=== PATIENT | female | born 1955 | race Caucasian/White ===

== ENCOUNTER → 2017-10-23 12:31 | Outpatient (CLI) | payer OTHER, SELFPAY ==
--- NOTE | 2017-10-23 12:46 | HPBI_ITS ---
MAMMOGRAPHY - BILATERAL SCREENING REASON FOR EXAM: Female, 61 years old. Routine annual screening examination. PERTINENT HISTORY: Non-contributory. TECHNIQUE: Digital bilateral breast valentino (3D mammographic acquisition) in the CC and MLO projections. 2-D mediolateral oblique (MLO) and craniocaudad (CC) views of both breasts were obtained. CAD: Full Field Digital Mammography with Computer Added Detection was performed. COMPARISON: Comparison is made with prior study dated April 18, 2016 and April 06, 2015. FINDINGS: Breast Composition: The breasts are almost entirely fatty. There are no dominant masses or suspicious calcifications. No other significant abnormalities are identified. There has been no significant change since the prior study. HPBI/SCREENING MAMM (CAD), BILAT IMPRESSION: Stable bilateral screening mammogram. Yearly follow-up mammogram recommended. (A) ASSESSMENT CATEGORY: BIRADS Category 1: Negative. A letter regarding these results will be sent to the patient by the facility within 30 days. Approximately 10% of breast cancers are not detected by mammography. A normal mammogram should not delay biopsy of a clinically suspicious abnormality. [id number] Electronically Signed: Jaydon Conklin MD at 15:05 EST Tel [phone], Service support ,
== END ==
PROVIDERS: Family Provider Family Medicine; PCP Family Medicine
DX: Z12.31 Encounter for screening mammogram for malignant neoplasm of breast (principal)
CPT/HCPCS: 77063; 77067

== ENCOUNTER → 2017-11-02 16:00 | Outpatient (CLI) | payer OTHER, SELFPAY | PROVIDERS: Family Provider Family Medicine; PCP Family Medicine; Visit Provider Otolaryngology Otolaryngology/Facial Plastic Surgery | DX: J32.9 Chronic sinusitis, unspecified (principal); J40 Bronchitis, not specified as acute or chronic | CPT/HCPCS: 87070; 87077; 87186; 87205 ==

== ENCOUNTER 2018-06-18 06:36 | Day surgery (SDC) | payer OTHER, SELFPAY ==
--- NOTE | 2018-06-17 | IMM_PTH ---
PATIENT: LACHO GORMAN LOC: EN U#:[id number] AGE/SX: 62/F ROOM: RE06/18/[address]: Dr. Ben Thomas MD : 1955 BED: DIS: 06/18/2018 SPEC #: [id number] RECD: 06/19/18 12:38 STATUS: ELIA REQ #: [id number] SEUN: 06/17/18 00:[address]: Ben Thomas DEPT: IMMUNOHISTOCHEMISTRY RECD BY: Cristin Blake ENTERED: 06/19/18 12:38 SP TYPE: IMMUNO OTHR DR: Dr. Harrison Phillips MD Tissues: B - Stomach, NOS Procedures: H Pylori (initial) PHYSICIAN & INSTITUTION [place] [id number] SPECIMEN INFORMATION: Tissue Source: B - Antral biopsy Clinical Info: Abdominal pain Specimen Number: [id number] CPT code: 89243 METHODOLOGY: Deparaffinized sections of prefer/formalin-fixed tissue or PAP/DQ stained slides are incubated with monoclonal/polyclonal antibodies/oligonucleotide probes. Localization is made via biotin free immunoperoxidase method. Appropriate controls are performed and reacted as expected. Results on target cell population are indicated in the following table: RESULTS: ANTIBODY / CLONE RESULT Block B H Pylori (polyclonal) negative These tests were developed and their performance characteristics determined by [facility]. They may not have been cleared or approved by the U.S. Food and Drug Administration. The FDA has determined that such clearance or approval is not necessary. INTERPRETATION: B. Antral biopsy: Negative for Helicobacter pylori organisms. SJ:lizzy 06/20/18
--- NOTE | 2018-06-17 | COLBX_PTH ---
PATIENT: LACHO GORMAN LOC: EN U#:[id number] AGE/SX: 62/F ROOM: RE06/18/[address]: Dr. Ben Thomas MD : 1955 BED: DIS: 06/18/2018 SPEC #: [id number] RECD: 06/18/18 13:52 STATUS: ELIA RERoger #: [id number] SEUN: 06/17/18 00:[address]: Ben Thomas DEPT: SURGICAL PATHOLOGY RECD BY: Sb Hernandez ENTERED: 06/18/18 13:53 SP TYPE: COLON BX OTHR DR: Dr. Harrison Phillips MD Tissues: A - Duodenum, NOS B - Gastric mucous membrane C - Esophageal mucous membrane D - Esophageal mucous membrane E - COLON BIOPSY Procedures: Surgery Specimen Level IV HEADER OPERATION: Colonoscopy, EGD PRE-OP DIAGNOSIS: Abdominal pain TISSUE SUBMITTED: A - Duodenal biopsy, B - Antral biopsy, C - Distal esophageal biopsy, D - Mid esophageal biopsy, E - Random colonic biopsies MICROSCOPIC DIAGNOSIS A. Duodenal biopsy: Fragments of small intestinal mucosa, no pathologic diagnosis. B. Antral biopsy: Mild gastritis. C. Distal esophageal biopsy: Fragments of squamous epithelium with minimal chronic inflammation. D. Mid esophageal biopsy: Fragments of squamous epithelium with minimal chronic inflammation. E. Colon, random biopsy: Fragments of colonic mucosa with pigment-laden macrophages, consistent with melanosis coli. SJ:lizzy 06/19/18 COMMENT B. The results of immunohistochemistry for Helicobacter pylori will be reported separately ([id number]). MICROSCOPIC DESCRIPTION Slides are reviewed. B. The specimen shows fragments of gastric mucosa with chronic inflammatory cell infiltrates in the lamina propria consisting of lymphocytes and plasma cells, consistent with mild chronic gastritis. GROSS DESCRIPTION A - Received in fixative is one container labeled with the patient's name and designated duodenal biopsy. The specimen consists of multiple irregular fragments of light french soft tissue that in aggregate measure 1.5 x 0.4 x 0.1 cm. The specimen is totally submitted in one cassette. B - Received in fixative is one container labeled with the patient's name and designated antral biopsy. The specimen consists of two irregular fragments of light french soft tissue that in aggregate measure 0.6 x 0.4 x 0.1 cm. The specimen is totally submitted in one cassette. C - Received in fixative is one container labeled with the patient's name and designated distal esophageal biopsy. The specimen consists of multiple irregular fragments of light french soft tissue that in aggregate measure 0.4 x 0.3 x 0.1 cm. The specimen is totally submitted in one cassette. D - Received in fixative is one container labeled with the patient's name and designated mid esophageal biopsy. The specimen consists of multiple irregular fragments of light french soft tissue that in aggregate measure 0.7 x 0.5 x 0.1 cm. The specimen is totally submitted in one cassette. E - Received in fixative is one container labeled with the patient's name and designated random colonic biopsy. The specimen consists of multiple irregular fragments of light french soft tissue that in aggregate measure 2 x 0.6 x 0.1 cm. The specimen is totally submitted in one cassette. / LUCRECIA:lizzy 06/18/18 TC:3 CPT: 88253 x5
[2018-06-18] VITALS (7 sets, daily range): BP systolic 117–134; BP diastolic 76–86; PULSE 67–77; RESP 16–18; TEMP 36.4–36.8; O2SAT 98–100; BMI 27.1
--- NOTE | 2018-06-18 06:44 | PCM.HP.STD ---
Problem List (1) Abdominal pain Status: Acute Qualifiers: History of Present Illness Date of Admission: 06/18/18 The patient is a 62 year old F who presents for surgical consultation regarding esophageal dysphasia chronic generalized abdominal pain and diarrhea. She is also had gas bloating and nausea. Sometimes mucus per rectum. She has been on omeprazole for years and been taking pro-antibiotics. She has had 3 previous upper endoscopies by Dr. Yves Skinner. She remotely had a pH probe examination. She has Meir's thyroiditis. Lyme disease. Fibromyalgia. Chronic fatigue. Her most recent upper and lower endoscopy was November 06, [address] Sabas Kuo. She is aggravated GERD symptoms. Past Medical History Medical History: Medical History (Last Reviewed 05/16/18 @ 09:09 by Alicja Adnrea) Abdominal pain (Acute) R10.9 Factor VIII deficiency (Acute) D66 Chronic fatigue syndrome (Acute) R53.82 Fibromyalgia (Acute) M79.7 Von Willebrand disease (Acute) D68.0 Cardiomyopathy (Acute) I42.9 Lyme disease (Acute) A69.20 Esophageal reflux (Acute) K21.9 Chronic lymphocytic thyroiditis (Acute) E06.3 Allergies azithromycin [From Zithromax Z-Sukh] Allergy (Verified 06/14/18 14:49) Rash cephalexin monohydrate [From Keflex] Allergy (Verified 06/14/18 14:49) Rash clarithromycin [From Biaxin] Allergy (Verified 06/14/18 14:49) Rash doxycycline Allergy (Verified 06/14/18 14:49) Rash milk Allergy (Verified 06/14/18 14:50) Diarrhea Penicillins Allergy (Verified 06/14/18 14:49) Rash Sulfa (Sulfonamide Antibiotics) Allergy (Verified 06/14/18 14:49) Rash wheat Allergy (Verified 06/14/18 14:50) Itching Home Medications: Ambulatory Orders Medication Instructions Recorded Desvenlafaxine Succinate [Pristiq] 100 mg PO BID 03/12/16 Propranolol HCl [Inderal (Beta 20 mg PO BID 03/12/16 Jass)] Acetaminophen/Codeine #3 1 - 2 tab PO Q4H PRN PRN #30 tab 03/13/16 [Tylenol#3] amino nylfh-tdrhaisy-mye-herbal 1 ea PO DAILY 05/16/18 comb 139 20 gram-400 mcg oral powder calcium carbonate 600 mg calcium 1,200 mg PO DAILY tab 05/16/18 (1,500 mg) tablet clonazepam 1 mg tablet 0.75 mg PO QHS 05/16/18 ergocalciferol (vitamin D2) 50,000 50,000 unit PO QWEEK 05/16/18 unit capsule levothyroxine 150 mcg tablet 137 mcg PO DAILY tab 05/16/18 mirabegron ER 25 mg 25 mg PO DAILY 05/16/18 tablet,extended release 24 hr montelukast 10 mg tablet 10 mg PO PRN PRN 05/16/18 omeprazole 40 mg capsule,delayed 40 mg PO DAILY 05/16/18 release teriparatide 20 mcg/dose (600 20 mcg SC DAILY 05/16/18 mcg/2.4 mL) subcutaneous pen injector Surgical History: Surgical History (Last Reviewed 05/16/18 @ 09:09 by Alicja Andrea) Hx of cardiac cath (Acute) Z98.890 2000 Hx of arthroscopy of right knee (Acute) Z98.890 Hx of ovarian cystectomy (Acute) Z98.890, Z87.42 Left Hx of tonsillectomy (Acute) Z90.89 History of endometrial ablation (Acute) Z98.890 1998 History of esophagogastroduodenoscopy (EGD) (Acute) Z98.890 11/06/11 Hx of colonoscopy (Acute) Z98.890 11/06/11 Smoking Status: Never smoker Review of Systems Constitutional: Reports: Anorexia HEENT: Reports: Difficulty Swallowing, Dysphasia Cardiovascular: Denies: Chest Pain Respiratory: Reports: Cough Gastrointestinal: Reports: Abdominal Pain Genitourinary: Denies: Dysuria Neurological: Denies: Balance problems Psychiatric: Reports: Anxiety VTE Information - Inpt Only VTE Present on Admission: No - Physical Exam General: Alert, Oriented x3, Cooperative, No apparent distress HEENT: Atraumatic Oral: Moist Mucosa Neck: Supple Lungs: Clear to auscultation Cardiovascular: Regular rate, Regular Rhythm Abdomen: Bowel Sounds Present, Soft, Non Tender Extremities: No Calf Tenderness Neurological: Cranial nerves II-XII grossly intact Psych/Mental Status: Anxious Assessment/Plan All Active Problems (Last Reviewed 05/16/18 @ 09:09 by Alicja Andrea) Abdominal pain (Acute) Hx of cardiac cath (Acute) Hx of arthroscopy of right knee (Acute) Hx of ovarian cystectomy (Acute) Hx of tonsillectomy (Acute) History of endometrial ablation (Acute) History of esophagogastroduodenoscopy (EGD) (Acute) Hx of colonoscopy (Acute) Factor VIII deficiency (Acute) Chronic fatigue syndrome (Acute) Fibromyalgia (Acute) Von Willebrand disease (Acute) Cardiomyopathy (Acute) Lyme disease (Acute) Esophageal reflux (Acute) Chronic lymphocytic thyroiditis (Acute) I recommend a esophagogastroduodenoscopy with anticipated biopsies at all sites. I anticipate a colonoscopy with random colonic biopsies looking for microcytic colitis. Patient's had an opportunity to ask and have questions answered. She has undergone a bowel preparation. We will proceed as noted. Primary care since Dr. Harrison Tovar and her referring practitioners EVE Helton M.D., F.A.C.S.
--- NOTE | 2018-06-18 08:08 | OP.ENDO_ITS ---
Patient Name: Vanessa Jerez Procedure Date: 06/18/2018 7:28 AM Date of : 1955 Age: 62 Procedure: Upper GI endoscopy Indications: Generalized abdominal pain, Abdominal bloating, Nausea Providers: Ben Thomas MD Referring MD: Ben Thomas MD Medicines: See the Anesthesia note for documentation of the administered medications Complications: No immediate complications. Procedure: Pre-Anesthesia Assessment: - Prior to the procedure, a History and Physical was performed, and patient medications and allergies were reviewed. The patient's tolerance of previous anesthesia was also reviewed. The risks and benefits of the procedure and the sedation options and risks were discussed with the patient. All questions were answered, and informed consent was obtained. Prior Anticoagulants: The patient has taken no previous anticoagulant or antiplatelet agents. ASA Grade Assessment: II - A patient with mild systemic disease. After reviewing the risks and benefits, the patient was deemed in satisfactory condition to undergo the procedure. After obtaining informed consent, the endoscope was passed under direct vision. Throughout the procedure, the patient's blood pressure, pulse, and oxygen saturations were monitored continuously. The gastroscope was introduced through the mouth, and advanced to the second part of duodenum. The upper GI endoscopy was accomplished without difficulty. The patient tolerated the procedure well. Scope In: 7:35:45 AM Scope Out: 7:43:59 AM Total Procedure Duration Time 0 hours 8 minutes 14 seconds Findings: The Z-line was regular and was found 40 cm from the incisors. The examined esophagus was normal. Biopsies were taken with a cold forceps for histology of the distal and mid esophagus Diffuse mildly erythematous mucosa without bleeding was found in the gastric antrum. Biopsies were taken with a cold forceps for histology. The examined duodenum was normal. Biopsies were taken with a cold forceps for histology. Impression: - Z-line regular, 40 cm from the incisors. - Normal esophagus. Biopsied. - Erythematous mucosa in the antrum. Biopsied. Minimal erythema. No findings that correlate with severity of symptoms. - Normal examined duodenum. Biopsied. Recommendation: - Await pathology results. - Resume previous diet. - Continue present medications. - Telephone my office for pathology results in 1 week. Procedure Code(s): --- Professional --- 19121, Esophagogastroduodenoscopy, flexible, transoral; with biopsy, single or multiple Diagnosis Code(s): --- Professional --- K31.89, Other diseases of stomach and duodenum R10.84, Generalized abdominal pain R14.0, Abdominal distension (gaseous) R11.0, Nausea CPT copyright 2017 [employer]. All rights reserved. The codes documented in this report are preliminary and upon stacker review may be revised to meet current compliance requirements. Ben Thomas MD 06/18/2018 8:07:27 AM This report has been signed electronically. Number of Addenda: 0 Note Initiated On: 06/18/2018 7:28 AM
--- NOTE | 2018-06-18 08:11 | OP.ENDO_ITS ---
Patient Name: Vanessa Jerez Procedure Date: 06/18/2018 7:46 AM Date of : 1955 Age: 62 Procedure: Colonoscopy Indications: Generalized abdominal pain, Clinically significant diarrhea of unexplained origin Providers: Ben Thomas MD Referring MD: Ben Thomas MD Medicines: See the Anesthesia note for documentation of the administered medications Patient Profile: Last Colonoscopy: October 2011. Complications: No immediate complications. Procedure: Pre-Anesthesia Assessment: - Prior to the procedure, a History and Physical was performed, and patient medications and allergies were reviewed. The patient's tolerance of previous anesthesia was also reviewed. The risks and benefits of the procedure and the sedation options and risks were discussed with the patient. All questions were answered, and informed consent was obtained. Prior Anticoagulants: The patient has taken no previous anticoagulant or antiplatelet agents. ASA Grade Assessment: II - A patient with mild systemic disease. After reviewing the risks and benefits, the patient was deemed in satisfactory condition to undergo the procedure. After I obtained informed consent, the scope was passed under direct vision. Throughout the procedure, the patient's blood pressure, pulse, and oxygen saturations were monitored continuously. The colonoscope was introduced through the anus and advanced to the cecum, identified by appendiceal orifice and ileocecal valve. The colonoscopy was performed without difficulty. The patient tolerated the procedure well. The quality of the bowel preparation was good. Scope In: 7:47:27 AM Scope Withdrawal Time 0 hours 7 minutes 47 seconds Scope Out: 8:00:27 AM Total Procedure Duration Time 0 hours 13 minutes 0 seconds Findings: Hemorrhoids were found on perianal exam. The colon (entire examined portion) appeared normal. Random Biopsies were taken throughout the colon with a cold forceps for histology. Impression: - Hemorrhoids found on perianal exam. - The entire examined colon is normal. Biopsied. Recommendation: - Discharge patient to home. - Resume previous diet. - Continue present medications. - Telephone my office for pathology results in 1 week. - Repeat colonoscopy in 10 years for screening purposes. Procedure Code(s): --- Professional --- 75226, Colonoscopy, flexible; with biopsy, single or multiple Diagnosis Code(s): --- Professional --- K64.9, Unspecified hemorrhoids R10.84, Generalized abdominal pain R19.7, Diarrhea, unspecified CPT copyright 2017 [employer]. All rights reserved. The codes documented in this report are preliminary and upon him coder review may be revised to meet current compliance requirements. Ben Thomas MD 06/18/2018 8:11:18 AM This report has been signed electronically. Number of Addenda: 0 Note Initiated On: 06/18/2018 7:46 AM
== END 2018-06-18 09:29 | disposition home or self-care (01) ==
LOC: EN 06:37 → AC 06:38
PROVIDERS: Family Provider Family Medicine; PCP Family Medicine; Referring Provider Surgery; Visit Provider Surgery
PROC: 0DJD8ZZ Inspection of Lower Intestinal Tract, Via Natural or Artificial Opening Endoscopic (ICD-10-PCS; CPT 45378; principal; 2018-06-18 07:25)
DX: K29.70 Gastritis, unspecified, without bleeding (principal); K20.9 Esophagitis, unspecified; K58.9 Irritable bowel syndrome, unspecified; K64.9 Unspecified hemorrhoids; R19.7 Diarrhea, unspecified; K21.9 Gastro-esophageal reflux disease without esophagitis; E06.3 Autoimmune thyroiditis; D66 Hereditary factor VIII deficiency; D68.0 Von Willebrand disease; M79.7 Fibromyalgia; R53.82 Chronic fatigue, unspecified; F32.9 Major depressive disorder, single episode, unspecified; F41.9 Anxiety disorder, unspecified; Z78.0 Asymptomatic menopausal state; Z79.899 Other long term (current) drug therapy
CPT/HCPCS: 43239; 45380; 88305; 88342; J7120

== ENCOUNTER → 2018-11-26 12:05 | Outpatient (CLI) | payer OTHER, SELFPAY ==
--- NOTE | 2018-11-26 12:10 | BI_ITS ---
MAMMOGRAPHY - BILATERAL SCREENING REASON FOR EXAM: Female, 63 years old. Routine annual screening examination. PERTINENT HISTORY: Non-contributory. TECHNIQUE: Digital bilateral breast valentino (3D mammographic acquisition) in the CC and MLO projections. 2-D mediolateral oblique (MLO) and craniocaudad (CC) views of both breasts were obtained. CAD: Full Field Digital Mammography with Computer Added Detection was performed. COMPARISON: Comparison is made with prior study dated October 23, 2017 and April 18, 2016. FINDINGS: Breast Composition: The breasts are almost entirely fatty. There are no dominant masses or suspicious calcifications. Stable small benign-appearing bilateral axillary lymph nodes. No other significant abnormalities are identified. There has been no significant change since the prior study. BI/SCREENING MAMM (CAD), BILAT IMPRESSION: Stable bilateral screening mammogram. Yearly follow-up mammogram recommended. (A) ASSESSMENT CATEGORY: BIRADS Category 2: Benign. A letter regarding these results will be sent to the patient by the facility within 30 days. Approximately 10% of breast cancers are not detected by mammography. A normal mammogram should not delay biopsy of a clinically suspicious abnormality. [id number] Electronically Signed: Jaydon Conklin, at 13:14 EDT , Service support ,
== END ==
PROVIDERS: Family Provider Family Medicine; PCP Family Medicine
DX: Z12.31 Encounter for screening mammogram for malignant neoplasm of breast (principal)
CPT/HCPCS: 77063; 77067

== ENCOUNTER 2019-05-21 03:06 | Emergency (ER) | payer OTHER, SELFPAY ==
[2019-05-21 06:43] LABS: Color, Urine Red (Yellow); Glucose, Dipstick Normal (Normal); Ketone-Dipstick 5 mg/dl (Negative); Leukocyte Esterase-Dipstick 500 /ul (Negative); Mucous, Urine 0 SEEN /hpf (<or=2+); Nitrite-Dipstick Negative (Negative); Occult Blood-Urine 250 /ul (Negative); Protein-Dipstick 500 mg/dl (Negative); Specific Gravity, Urine 1.025 (1.002-1.030); Squamous Epithelial Cells - UA 0 SEEN /hpf (5-10); Urine Bilirubin Dipstick 3 mg/dL (Negative); Urine Clarity Turbid (Clear); Urine Urobilinogen Normal (Normal)
[2019-05-21 06:44] LABS: Bacteria 1+ /hpf (None Seen); Red Blood Cells-Urine 50-100 SEEN /hpf (0-5); White Blood Cells 25-50 SEEN /hpf (0-5)
== END 2019-05-21 04:30 | disposition home or self-care (01) ==
LOC: ED 05:59
PROVIDERS: Emergency Provider Emergency Medicine; Family Provider Family Medicine; PCP Family Medicine
DX: N30.90 Cystitis, unspecified without hematuria (principal); M54.30 Sciatica, unspecified side; B33.24 Viral cardiomyopathy; D68.0 Von Willebrand disease; E03.9 Hypothyroidism, unspecified; Z79.899 Other long term (current) drug therapy
CPT/HCPCS: 81001; 99283

== ENCOUNTER → 2019-07-29 17:18 | Outpatient (CLI) | payer OTHER, SELFPAY | PROVIDERS: Family Provider Family Medicine; PCP Family Medicine; Referring Provider Otolaryngology Otolaryngology/Facial Plastic Surgery; Visit Provider Otolaryngology Otolaryngology/Facial Plastic Surgery | DX: J02.9 Acute pharyngitis, unspecified (principal) | CPT/HCPCS: 87070; 87077 ==

== ENCOUNTER → 2019-10-03 10:50 | Outpatient (CLI) | payer OTHER, SELFPAY ==
[2018-06-18 06:53] VITALS: BMI 27.1
== END ==
PROVIDERS: PCP Family Medicine; Referring Provider Otolaryngology; Visit Provider Otolaryngology
DX: J02.9 Acute pharyngitis, unspecified (principal)
CPT/HCPCS: 87804

== ENCOUNTER → 2020-02-03 11:55 | Outpatient (CLI) | payer OTHER, SELFPAY ==
--- NOTE | 2020-02-03 11:59 | BI_ITS ---
MAMMOGRAPHY - BILATERAL SCREENING REASON FOR EXAM: Female, 64 years old. Routine annual screening examination. PERTINENT HISTORY: Non-contributory. TECHNIQUE: Digital bilateral breast neville (3D mammographic acquisition) in the CC and MLO projections. 2-D mediolateral oblique (MLO) and craniocaudad (CC) views of both breasts were obtained. CAD: Full Field Digital Mammography with Computer Added Detection was performed. COMPARISON: Comparison is made with prior study dated November 26, 2018 and October 23, 2017. FINDINGS: Breast Composition: The breasts are almost entirely fatty. There are no dominant masses or suspicious calcifications. No other significant abnormalities are identified. There has been no significant change since the prior study. BI/SCREEN MAMM (CAD) W/[place] BILAT IMPRESSION: Stable bilateral screening mammogram. Yearly follow-up mammogram recommended. (A) ASSESSMENT CATEGORY: BIRADS Category 1: Negative. A letter regarding these results will be sent to the patient by the facility within 30 days. Approximately 10% of breast cancers are not detected by mammography. A normal mammogram should not delay biopsy of a clinically suspicious abnormality. [id number] Electronically Signed: Jaydon Conklin, at 9:13 EDT , Service support ,
== END ==
PROVIDERS: PCP Family Medicine
DX: Z12.31 Encounter for screening mammogram for malignant neoplasm of breast (principal)
CPT/HCPCS: 77063; 77067

== ENCOUNTER → 2020-06-14 17:49 | Outpatient (CLI) | payer OTHER, SELFPAY | PROVIDERS: PCP Family Medicine; Referring Provider Family Medicine; Visit Provider Family Medicine | DX: Z20.828 Contact with and (suspected) exposure to other viral communicable diseases (principal) | CPT/HCPCS: 87635; C9803; U0003 ==

== ENCOUNTER → 2021-03-14 12:30 | Outpatient (CLI) | payer OTHER, SELFPAY ==
--- NOTE | 2021-03-14 12:35 | BI_ITS ---
MAMMOGRAPHY - BILATERAL SCREENING REASON FOR EXAM: Female, 65 years old. Routine annual screening examination. PERTINENT HISTORY: Non-contributory. TECHNIQUE: Digital bilateral breast neville (3D mammographic acquisition) in the CC and MLO projections. 2-D mediolateral oblique (MLO) and craniocaudad (CC) views of both breasts were obtained. CAD: Full Field Digital Mammography with Computer Added Detection was performed. COMPARISON: Comparison is made with prior study dated 02/03/2020 and 11/26/2018. FINDINGS: Breast Composition: The breasts are almost entirely fatty. There are no dominant masses or suspicious calcifications. Stable benign appearing bilateral axillary lymph. No other significant abnormalities are identified. There has been no significant change since the prior study. BI/SCRN MAMM (CAD)W/[place] BILAT IMPRESSION: Stable bilateral screening mammogram. Yearly follow-up mammogram recommended. (A) ASSESSMENT CATEGORY: BIRADS Category 2: Benign. A letter regarding these results will be sent to the patient by the facility within 30 days. Approximately 10% of breast cancers are not detected by mammography. A normal mammogram should not delay biopsy of a clinically suspicious abnormality. [id number] Electronically Signed: Jaydon Conklin MD at 14:19 EDT , Service support ,
== END ==
PROVIDERS: PCP Family Medicine; Referring Provider Obstetrics & Gynecology; Visit Provider Obstetrics & Gynecology
DX: Z12.31 Encounter for screening mammogram for malignant neoplasm of breast (principal)
CPT/HCPCS: 77063; 77067

== ENCOUNTER → 2021-06-21 08:31 | Outpatient (CLI) | payer OTHER, SELFPAY ==
[2021-06-21 09:00] LABS: Hematocrit 43.6 % (37-47); Hemoglobin 14.2 g/dL (12.0-15.0); Mean Corp Hgb Conc 32.6 g/dL (32-36); Mean Corpuscular Hgb 31.5 pg (27.0-32.0); Mean Corpuscular Volume 96.7 fL (81-99); Mean Platelet Vol. 10.1 fl (6.2-12.0); Platelet Count 255 K/mm3 (150-450); RBC Distribution Width CV 12.5 % (11.6-14.6); RBC Distribution Width SD 44.7 fl (35.1-43.9); Red Blood Count 4.51 M/mm3 (4.2-5.4); White Blood Count 6.4 K/mm3 (4.4-11.0)
[2021-06-21 09:15] LABS: Anion Gap 7 (5-15); BUN 20 mg/dL (7-18); Calcium,Total 9.1 mg/dL (8.5-10.1); Chloride 103 mmol/L (98-107); EST Glomerular Filtration Rate 77 mL/min (>60); Est Glom Filt Rate - Afr Amer 93 mL/min (>60); Glucose 108 mg/dL (74-106); Sodium Level 141 mmol/L (136-145)
[2021-06-21 11:35] LABS: T3 Total - Triiodothyronine 0.95 ng/mL (0.6-1.81); Vitamin D,25 Hydroxy 56.1 ng/mL
[2021-06-21 11:41] LABS: AST(SGOT) 28 U/L (15-37); Alanine Aminotransfer ALT/SGPT 33 U/L (13-56); Albumin, Serum 4.2 g/dL (3.2-5.0); Alkaline Phosphatase 59 U/L (45-117); Bilirubin, Direct 0.14 mg/dL (0.00-0.30); Cholesterol 194 mg/dL (200); Free T3 2.1 pg/mL (2.18-3.98); Globulin 3.7 g/dL (2.2-4.2); High Density Lipoprotein 53 mg/dL; Protein, Total 7.9 g/dL (6.4-8.2); T4 Free Direct 0.64 ng/dL (0.76-1.46); Thyroid Stim Hormone (TSH) 2.53 uIU/mL (0.358-3.74); Triglycerides 211 mg/dL; Very Low Density Lipoprotein 42 mg/dL (5-40)
--- NOTE | 2021-06-21 13:31 | TILTTABLE_ITS ---
Staff Staff: Pam Carmen and - (Yeni Robles) Summary Protocol: 70 Degree Upright Tilt Pre Test Resting HR: 77 Pre Test Resting BP: 141/98 Minimum Test HR: 77 Maximum Test HR: 100 Minimum Test BP: 114/89 Maximum Test BP: 133/82 Reason for Test Termination: Reached Maximum Test Time Physician Tilt Table Report Patient's Physicians Primary Care Physician: Harrison Phillips [employer] Technician: Fredi Montiel Indications/Diagnosis: Ataxia; vertigo; lightheadedness; palpitations; spinal stenosis of cervical region; cervicalgia Procedure Comments: The patient presented to the tilt table laboratory and was awake and alert and warm and dry. The baseline heart rate was 77 bpm with a baseline blood pressure 141/98 mmHg. The baseline cardiac rhythm was normal sinus rhythm. The patient was placed in the 70 degree upright tilt table position for approximately 30 minutes. The patient remained alert with a brief notation of drowsiness and warm and dry. The minimal heart rate was 77 bpm with a minimal blood pressure at 114/89 mmHg and a maximal heart rate of 100 bpm with a maximal blood pressure 133/82 mmHg. The cardiac rhythm remains normal sinus rhythm. No complaints were recorded. The patient did not lose consciousness. The patient was returned to the supine position. The patient remained alert and oriented and warm and dry. The concluding heart rate was 89 bpm with a concluding blood pressure 148/83 mmHg. The cardiac rhythm remained normal sinus rhythm. The patient was subsequently released from the tilt table laboratory. Summary: 70 degree upright tilt table study considered negative for reproducible vasovagal/neurocardiogenic syncope. This note was generated using a voice recognition system and there may be incorrect words, spelling or punctuation that were not noted when reviewing the office note prior to saving.
[2021-06-21 13:38] VITALS: BP 114/89; BP 133/82; BP 141/98
== END ==
PROVIDERS: PCP Family Medicine; Referring Provider Psychiatry & Neurology Sleep Medicine; Visit Provider Psychiatry & Neurology Sleep Medicine
DX: R42 Dizziness and giddiness (principal); R00.2 Palpitations; E05.90 Thyrotoxicosis, unspecified without thyrotoxic crisis or storm; E78.1 Pure hyperglyceridemia; E55.9 Vitamin D deficiency, unspecified
CPT/HCPCS: 36415; 80048; 80061; 80076; 82306; 84439; 84443; 84480; 84481; 85027; 93660; J7040; A4216

== ENCOUNTER 2021-12-19 09:01 | Outpatient (CLI) | payer OTHER, SELFPAY | END 2021-12-19 23:59 | disposition home or self-care (01) | LOC: LABSPEC 12-20 09:02 | PROVIDERS: PCP Family Medicine; Visit Provider Otolaryngology Otolaryngology/Facial Plastic Surgery | DX: J02.9 Acute pharyngitis, unspecified (principal) | CPT/HCPCS: 87070 ==

== ENCOUNTER 2022-04-01 15:30 | Emergency (ER) | payer OTHER, SELFPAY ==
[2022-04-01 15:31] VITALS: BP 148/100; PULSE 79; RESP 16; TEMP 36.6; O2SAT 96; BMI 26.6
--- NOTE | 2022-04-01 16:01 | CT_ITS ---
STUDY: CT BRAIN WITHOUT CONTRAST REASON FOR EXAM: Female, 66 years old. head injury/ FALL. HISTORY OF SMALL BRAIN ANEURYSM RADIATION DOSAGE (If Supplied By Facility): CTDIvol = ( 44.99 ) mGy, DLP = ( 796.11 ) mGycm TECHNIQUE: Transaxial CT imaging of the brain was performed without administration of intravenous contrast material. Individualized dose optimization techniques were used for this CT. COMPARISON: 03/12/2016. FINDINGS: Normal soft tissue structures. Normal calvarium. Normal size ventricles and extra-axial spaces for the patient''s age. Normal white matter tracts of the cerebral hemispheres. Normal basal ganglia and thalami. Normal brainstem. Normal cerebellum. There is no intracranial hemorrhage. There are no findings of an acute ischemic infarction. Normal visualized paranasal sinuses. CT/Brain/Head without Contrast IMPRESSION: Normal unenhanced CT scan of the brain. Electronically Signed: Mary Miller MD at 17:33 EDT Reading Location ID and State: [id number] / Tel , Service support ,
--- NOTE | 2022-04-01 16:02 | ED.VIS.FALL ---
HPI HPI - Fall History of Present Illness Chief Complaint: Fall Informant: patient Occured/Mechanism Occurred: Today Mechanism/Context: Yes same level fall Usually ambulates: Without assistance Pain/Injury Pain Location: head Quality of Pain: Dull and Aching Current Severity: Mild Maximum Severity: Mild Associated Symptoms Associated Symptoms: Negative for Parasthesias, Weakness, Loss of function, Inability to ambulate, Loss of consciousness or Amnesia Narrative Narrative: 66-year-old female with a history of a known brain aneurysm, cardiomyopathy, factor VIII deficiency and von Willebrand's. States she was walking in her home and fell into the wall striking her head. She denies any neck pain. She does have a headache. She denies a loss conscious. She is done this multiple times in the past. They worked her up for these falls and on the was causing them. She denies any pain in her extremities chest, back, abdomen. No recent illness. Prior similar symptoms: Yes Recent Illness/Hospitalization: No PFSH PFSH Medical History (Updated 04/01/22 @ 17:[address] Clarence Kahn MD) Abdominal pain Cardiomyopathy Chronic fatigue syndrome Chronic lymphocytic thyroiditis Esophageal reflux Factor VIII deficiency Fibromyalgia Lyme disease Von Willebrand disease Home Medications desvenlafaxine succinate 100 mg tablet,extended release 24 hr 100 mg PO BID 03/12/16 [History Last Taken Unknown] propranolol 20 mg tablet 20 mg PO BID 03/12/16 [History Last Taken 06/18/18 05:00] acetaminophen 300 mg-codeine 30 mg tablet 1 - 2 tab PO Q4H PRN PRN Pain #30 tabs 03/13/16 [Rx Last Taken Unknown] amino nlykh-xpzztjfm-xse-herbal comb 139 20 gram-400 mcg oral powder (K-PAX) 1 ea PO DAILY 05/16/18 [History Last Taken Unknown] calcium carbonate 600 mg calcium (1,500 mg) tablet 1,200 mg PO DAILY 05/16/18 [History Last Taken Unknown] clonazepam 1 mg tablet (Klonopin) 0.75 mg PO QHS 05/16/18 [History Last Taken Unknown] ergocalciferol (vitamin D2) 1,250 mcg (50,000 unit) capsule (Drisdol) 50,000 unit PO QWEEK 05/16/18 [History Last Taken Unknown] levothyroxine 150 mcg tablet 137 mcg PO DAILY 05/16/18 [History Last Taken 06/18/18 05:00] mirabegron 25 mg tablet,extended release 24 hr (Myrbetriq) 25 mg PO DAILY URINARY INCONTINENCE 05/16/18 [History Last Taken Unknown] montelukast 10 mg tablet (Singulair) 10 mg PO PRN PRN Allergies 05/16/18 [History Last Taken Unknown] omeprazole 40 mg capsule,delayed release 40 mg PO DAILY 05/16/18 [History Last Taken 06/18/18 05:00] teriparatide 20 mcg/dose (600 mcg/2.4 mL) subcutaneous pen injector (Forteo) 20 mcg subcut DAILY OSTEOPOROSIS 05/16/18 [History Last Taken Unknown] Allergy/AdvReac Type Severity Reaction Status Date / Time azithromycin Allergy Rash Verified 04/01/22 15:33 [From Zithromax Z-Sukh] cephalexin monohydrate Allergy Rash Verified 04/01/22 15:33 [From Keflex] clarithromycin [From Biaxin] Allergy Rash Verified 04/01/22 15:33 doxycycline Allergy Rash Verified 04/01/22 15:33 milk Allergy Diarrhea Verified 04/01/22 15:33 Penicillins Allergy Rash Verified 04/01/22 15:33 Sulfa (Sulfonamide Allergy Rash Verified 04/01/22 15:33 Antibiotics) wheat Allergy Itching Verified 04/01/22 15:33 Family History Mother Hypertension Father Hypertension Diabetes Emphysema/COPD Son Autoimmune deficiency syndrome Von Willebrand disease, type I Surgical History History of endometrial ablation History of esophagogastroduodenoscopy (EGD) Hx of arthroscopy of right knee Hx of cardiac cath Hx of colonoscopy Hx of ovarian cystectomy Hx of tonsillectomy Social History Smoking Status: Never smoker second hand exposure: No alcohol intake: current alcohol intake frequency: holidays/special occasions only substance use type: does not use what type of physical activity do you participate in: walking and weight training frequency: daily seatbelt use: always ROS ROS ED ROS Narrative Denies recent illness. Review of Systems ROS Unobtainable: Denies due to encephalopathy Constitutional Constitutional ED: Denies chills Eyes Eyes: Denies blurry vision ENT ENT ED: Denies ear pain Cardiovascular Cardiovascular: Denies chest pain Respiratory/Chest Respiratory/Chest: Denies cough Gastrointestinal Gastrointestinal: Denies abdominal pain Genitourinary Genitourinary ED: Denies dysuria Musculoskeletal Musculoskeletal: Denies arthralgias Integumentary Denies abscess Neurologic Neurologic: Reports headache(s) Psychiatric Psychiatric: Denies anxiety Endocrine Endocrinology: Denies polydipsia Hematologic/Lymphatic Hematologic/Lymphatic: Denies easy bleeding Allergic/Immunologic Allergic/Immunologic ED: Denies mouth swelling EXAM Physical Exam Narrative Exam Narrative: 66-year-old female exam benign. C-spine and back nontender. Lungs are clear. Abdomen soft nontender. Heart regular rate and rhythm. Moving all 4 extremities. Neurologic exam normal. GCS 15. Const Vital Signs: 04/01/22 15:31 04/01/22 16:18 Temperature 97.9 F Temperature Source Temporal Pulse Rate 79 Respiratory Rate 16 Respiratory Effort Normal Non-Labored Respiratory Depth Normal Respiratory Pattern Normal Blood Pressure 148/100 H Blood Pressure Mean 116 Pulse Ox 96 Oxygen Delivery Method Room Air Room Air Positive well nourished and well developed; Negative for cachectic, contractures or unkempt General Appearance ED: well developed; Negative for unkempt, cachectic or contractures Nutritional Appearance: Negative for cachectic HEENT Reports normocephalic trauma; Negative for atraumatic, contusion, hematoma or tenderness Eyes PERRL and EOMs intact bilaterally General Eye ED: Negative for pale conjunctiva or scleral icterus Neck full ROM, no lymphadenopathy and supple General: Negative for tenderness Resp normal respiratory effort, no retractions and clear to auscultation bilaterally Effort and Inspection: Negative for pain with movement Auscultation: Negative for rales or rhonchi Cardio regular rate, regular rhythm, S1 normal heart sound, S2 normal heart sound and no murmurs Rate: Negative for bradycardia Rhythm: Negative for abnormal rhythm Bruits: Negative for other GI non-tender, non-distended and no masses Inspection: Negative for abdominal distention Auscultation: normoactive bowel sounds Palpation: soft; Negative for guarding Back/Spine no CVA tenderness General Back: Negative for CVA tenderness, erythema, ecchymosis, swelling or tenderness Cervical Spine: Negative for cervical spine tenderness Thoracic Spine / Upper Back: Negative for ROM limited Lumbar Spine / Lower Back: Negative for lumbar spinal tenderness Neuro oriented x3, CN's II-XII intact bilaterally, moves all extremities and no focal motor deficits [place] Coma Scale: document GCS findings Spontaneous Obeys Commands Oriented 15 Sensorium / Orientation: alert, oriented to person, oriented to place and oriented to time; Negative for orientation impaired, confused, lethargic or stuporous Motor Exam: strength 5/5 throughout Psych Appearance: Negative for unkempt Skin Lesions: no lesions Rashes: no rashes MDM MDM MDM Narrative Medical decision making narrative: 66-year-old female head injury. History of bleeding disorder and a headache post fall. When she fell she put a hole in the drywall at her home. CAT scan being obtained. Tylenol for pain. Otherwise exam unremarkable. Repeat exam patient is doing well. 5:36 PM. She will be discharged home. CAT scan was negative. Read by the radiologist. Radiography Diagnostic Testing: Clinical Impression(s) from Imaging Studies Brain CT 04/01/22 16:01 IMPRESSION: Normal unenhanced CT scan of the brain. Electronically Signed: Mary Miller MD at 17:33 EDT Reading Location ID and State: [id number] / Tel , Service support , Discharge Plan Triage Chief Complaint: Fall ED Provider: Clarence Kahn Dx/Rx/DC Orders Clinical Impression: CHI (closed head injury), Von Willebrand disease, Factor VIII deficiency, Fall Instructions: ED Head Injury (Adult) Prescriptions: No Action teriparatide [Forteo] 20 mcg/dose - 600 mcg/2.4 mL pen injector 20 mcg SC DAILY ergocalciferol (vitamin D2) [Drisdol] 50,000 unit capsule 50,000 unit PO QWEEK Rx Instructions: TAKES ON SUNDAY omeprazole 40 mg capsule,delayed release(DR/EC) 40 mg PO DAILY montelukast [Singulair] 10 mg tablet 10 mg PO PRN PRN (Reason: Allergies) mirabegron [Myrbetriq] 25 mg tablet extended release 24 hr 25 mg PO DAILY calcium carbonate 600 mg calcium (1,500 mg) tablet 1,200 mg PO DAILY clonazepam [Klonopin] 1 mg tablet 0.75 mg PO QHS amino wtydl-bljgoeqn-vxp-herbal comb 139 20 gram-400 mcg oral powder 20-400 gram-mcg powder 1 ea PO DAILY propranolol 20 MG tablet 20 mg PO BID desvenlafaxine succinate 100 MG tablet 100 mg PO BID acetaminophen-codeine 1 TABLET tablet 1 - 2 tab PO Q4H PRN PRN (Reason: Pain) Qty: 30 0RF levothyroxine 150 mcg tablet 137 mcg PO DAILY Primary Care Provider: Harrison Phillips Referrals: Harrison Phillips MD [Primary Care Provider] - As Needed Activity Restrictions/Additional Instructions: Your CAT scan was normal today. Follow-up with your doctor as needed. If you develop severe headache, intractable vomiting or not acting right you need to be reevaluated after the head injury. Disposition Disposition: Home, Self Care
[2022-04-01] MEDS: Acetaminophen 500 MG Tablet 1000 MG PO (16:14)
== END 2022-04-01 17:45 | disposition home or self-care (01) ==
PROVIDERS: Emergency Provider Emergency Medicine; PCP Family Medicine; Visit Provider Emergency Medicine
DX: S09.90XA Unspecified injury of head, initial encounter (principal); W01.198A Fall on same level from slipping, tripping and stumbling with subsequent striking against other object, initial encounter; Y93.01 Activity, walking, marching and hiking; Y92.009 Unspecified place in unspecified non-institutional (private) residence as the place of occurrence of the external cause; I42.9 Cardiomyopathy, unspecified; D68.0 Von Willebrand disease; D68.2 Hereditary deficiency of other clotting factors; E06.3 Autoimmune thyroiditis; R53.82 Chronic fatigue, unspecified; M79.7 Fibromyalgia; K21.9 Gastro-esophageal reflux disease without esophagitis; Z79.890 Hormone replacement therapy; Z79.899 Other long term (current) drug therapy
CPT/HCPCS: 70450; 99283

== ENCOUNTER → 2022-11-21 | Outpatient (CLI) | payer OTHER, SELFPAY ==
--- NOTE | 2022-11-21 17:30 | MRI_ITS ---
STUDY: MRI LUMBAR SPINE WITHOUT CONTRAST REASON FOR EXAM: Female, 66 years old. INTERVERTEBRAL DISC DEGENERATION TECHNIQUE: Standardized fat and water weighted pulse sequences were obtained in the sagittal and axial planes. COMPARISON: Lumbar spine radiographs 02/10/2015. FINDINGS: T11-T12: (Sagittal only). Normal endplates. Moderate disc space height narrowing. Minimal ventral extradural defect due to small posterior bulging annulus. Normal central canal and bilateral intervertebral neural foramina. T12-L1: (Sagittal only). Normal endplates. Normal disc height. Mild ventral extradural defect due to small posterior bulging annulus. Normal central canal and bilateral intervertebral neural foramina. Normal lumbar lordosis. There is no substantial scoliosis. Normal conus medullaris that terminates at the lower T12 vertebral body level. L1-2: Normal endplates. Normal disc height, hydration and morphology. Normal bilateral facet joints. Normal central canal and bilateral lateral recesses. Normal bilateral intervertebral neural foramina. L2-3: Normal endplates. Normal disc height, hydration and morphology. Normal bilateral facet joints. Normal central canal and bilateral lateral recesses. Normal bilateral intervertebral neural foramina. L3-4: Normal endplates. Normal disc height, hydration and morphology. Normal bilateral facet joints. Normal central canal and bilateral lateral recesses. Normal bilateral intervertebral neural foramina. L4-5: Normal endplates. Normal disc height. Mild ventral extradural defect due to posterior bulging annulus. Mild bilateral degenerative facet arthropathy. Mild central canal stenosis with an AP canal diameter of 9 mm. Mild dorsal epidural lipomatosis. Normal bilateral lateral recesses. Normal bilateral intervertebral neural foramina. L5-S1: Normal endplates. Normal disc height. Small left posterior caudal disc extrusion causing displacement of the left S1 nerve root sleeve and left lateral recess stenosis. Mild asymmetric degenerative facet arthropathy, right greater than left. Mild central canal stenosis with an AP canal diameter of 9 mm. Normal right lateral recess. Normal bilateral intervertebral neural foramina. Normal visualized sacral ala. Normal visualized paraspinous soft tissue structures. MRI/Spine Lumbar (Routine) IMPRESSION: Small left L5-S1 posterior caudal disc extrusion causing severe stenosis of the left lateral recess and displacement of the left S1 nerve root sleeve. Electronically Signed: Luisito Sanchez MD at 11:49 EST ,
== END | disposition home or self-care (01) ==
PROVIDERS: PCP Family Medicine; Referring Provider Anesthesiology Pain Medicine; Visit Provider Anesthesiology Pain Medicine
DX: M51.37 Other intervertebral disc degeneration, lumbosacral region (principal)
CPT/HCPCS: 72148

== ENCOUNTER → 2023-08-01 | Outpatient (CLI) | payer OTHER, SELFPAY | END | disposition home or self-care (01) | LOC: LABSPEC 15:09 | PROVIDERS: PCP Family Medicine; Visit Provider Otolaryngology Otolaryngology/Facial Plastic Surgery | DX: J02.9 Acute pharyngitis, unspecified (principal) | CPT/HCPCS: 87070 ==

== ENCOUNTER → 2024-02-12 | Outpatient (CLI) | payer OTHER, SELFPAY | END | disposition home or self-care (01) | PROVIDERS: PCP Family Medicine; Visit Provider Otolaryngology | DX: J02.9 Acute pharyngitis, unspecified (principal) | CPT/HCPCS: 87070 ==

== ENCOUNTER → 2024-12-17 | Outpatient (CLI) | payer OTHER, SELFPAY ==
[2024-12-17 16:09] LABS: Absolute Neutrophil Count 4.6 X10^3/uL (2.0-7.7); Basophil# 0.05 X10^3/uL; Basophil% 0.6 % (0-1); Eosinophil# 0.22 X10^3/uL; Eosinophils% 2.6 % (0-5); Hematocrit 39.9 % (37-47); Hemoglobin 13.5 g/dL (12.0-15.0); Lymphocyte % 30.7 % (19-41); Mean Corp Hgb Conc 33.8 g/dL (32-36); Mean Corpuscular Hgb 32.8 pg (27.0-32.0); Mean Corpuscular Volume 96.8 fL (81-99); Monocyte# 0.93 X10^3/uL; NRBC Flagged by Analyzer 0 % (0-5); Neutrophil # 4.62 X10^3/uL (2.7-7.7); Neutrophil % 54.5 % (47-70); Platelet Count 274 K/mm3 (150-450); RBC Distribution Width CV 12.5 % (11.6-14.6); RBC Distribution Width SD 44.7 fl (35.1-43.9); Red Blood Count 4.12 M/mm3 (4.2-5.4); White Blood Count 8.5 K/mm3 (4.4-11.0)
[2024-12-17 16:20] LABS: Erythrocyte Sedimentation Rate 1 mm/hr (0-30)
[2024-12-17 16:43] LABS: Vitamin B12 1520 pg/mL (180-914)
[2024-12-17 16:45] LABS: Rheumatoid Factor < 10.0 IU/mL (<15)
[2024-12-19 13:08] LABS: ANTINUCLEAR ANTIBODIES DIRECT Negative (Negative); Anti-Nuclear Antibody Test Negative (.)
[2024-12-19 15:08] LABS: CCP IgG Antibodies 5 units (0-19)
== END | disposition home or self-care (01) ==
LOC: MTLAB 12:58
PROVIDERS: PCP Family Medicine; Referring Provider Podiatrist; Visit Provider Podiatrist
DX: M79.671 Pain in right foot (principal)
CPT/HCPCS: 36415; 82607; 85025; 85652; 86038; 86140; 86200; 86431